=== PATIENT | female | born 1950 | race Caucasian/White ===

== ENCOUNTER → 2020-06-19 | Outpatient (CLI) | payer MEDICARE, OTHER ==
[~2020-06-19] MED LIST: AMITRIPTYLINE H25 MG PO; ATIVAN0.5 MG PO; B-122500 MCG SL; CALCIUM CARBON600 M1 PO; COLACE100 MG PO; CYCLOBENZAPRINE10 MG PO; ECOTRIN81 MG PO; ELIQUIS2.5 MG PO; FISH OIL 1,2001 EAC2 PO; FLEXERIL 10 MG10 MG PO; FOLIC ACID0.8 MG PO; GABAPENTIN600 MG PO; HUMIRA40 MG/0.8 SQ; METHOTREXATE2.5 MG PO; OXYCODONE HCL5 MG PO; PLAQUENIL 200200 MG PO; PREDNISONE10 MG PO; ROXICODONE TAB 55 MG PO; SYNTHROID25 MCG PO; TRAZODONE HCL100 MG PO; VITAMIN C 500500 MG PO; VITAMIN D3125 MCG PO; ZOCOR40 MG PO
== END ==
LOC: EMI 14:30
DX: M51.16 Intervertebral disc disorders with radiculopathy, lumbar region (principal); M43.16 Spondylolisthesis, lumbar region; M51.27 Other intervertebral disc displacement, lumbosacral region; M48.07 Spinal stenosis, lumbosacral region; M47.26 Other spondylosis with radiculopathy, lumbar region
CPT/HCPCS: 72148

== ENCOUNTER → 2020-07-10 | Outpatient (CLI) | payer MEDICARE, OTHER | LOC: KOH-I 13:24 | DX: Z01.818 Encounter for other preprocedural examination (principal); M51.36 Other intervertebral disc degeneration, lumbar region; M48.061 Spinal stenosis, lumbar region without neurogenic claudication; M51.37 Other intervertebral disc degeneration, lumbosacral region; M48.07 Spinal stenosis, lumbosacral region | CPT/HCPCS: 72131 ==

== ENCOUNTER → 2020-07-11 | Outpatient (CLI) | payer MEDICARE, OTHER | LOC: EXRD 11:30 | DX: M81.0 Age-related osteoporosis without current pathological fracture (principal); M85.831 Other specified disorders of bone density and structure, right forearm | CPT/HCPCS: 77080 ==

== ENCOUNTER → 2020-07-17 | Outpatient (CLI) | payer MEDICARE, OTHER | LOC: MRI 07-13 10:00 → EMI 09:38 → MRI 09:45 | DX: M54.2 Cervicalgia (principal); M47.022 Vertebral artery compression syndromes, cervical region; M50.31 Other cervical disc degeneration, high cervical region; M48.02 Spinal stenosis, cervical region | CPT/HCPCS: 72141 ==

== ENCOUNTER → 2020-08-26 | Outpatient (CLI) | payer MEDICARE, OTHER | LOC: KOH-I 08:00 | DX: Z01.818 Encounter for other preprocedural examination (principal); M41.9 Scoliosis, unspecified; M47.814 Spondylosis without myelopathy or radiculopathy, thoracic region; M54.16 Radiculopathy, lumbar region; Z20.822 Contact with and (suspected) exposure to COVID-19 | CPT/HCPCS: 36415; 71046; 72128; 72146; 80048; 85027; 87077; 87081; 87086; 87186; 93005; U0003 ==

== ENCOUNTER 2020-09-02 05:59 | Inpatient (IN) | payer MEDICARE, OTHER ==
[~2020-09-02] VITALS: Ht 157.5 cm; Wt 75.3 kg
[~2020-09-02 05:59] MED LIST changes: -AMITRIPTYLINE H25 MG PO; -B-122500 MCG SL; -CALCIUM CARBON600 M1 PO; -COLACE100 MG PO; -CYCLOBENZAPRINE10 MG PO; -ECOTRIN81 MG PO; -FISH OIL 1,2001 EAC2 PO; -FOLIC ACID0.8 MG PO; -HUMIRA40 MG/0.8 SQ; -OXYCODONE HCL5 MG PO; -ROXICODONE TAB 55 MG PO; -SYNTHROID25 MCG PO; -VITAMIN C 500500 MG PO; -VITAMIN D3125 MCG PO
[2020-09-02] MEDS ORDERED: AMITRIPTYLINE H25 MG PO (07:11)
[2020-09-02] MEDS ORDERED: PREDNISONE10 MG PO (07:12)
[2020-09-02] MEDS ORDERED: OXYCODONE HCL5 MG PO (07:14)
[2020-09-02 14:11] LABS: HEMOGLOBIN 10.2 gm/dl (12.3-15.3); RED BLOOD COUNT 3.97 M/UL (4.00-5.10); WHITE BLOOD COUNT 8.3 K/UL (4.5-11.0)
[2020-09-02 19:29] LABS: HEMOGLOBIN 11.1 gm/dl (12.3-15.3); RED BLOOD COUNT 4.1 M/UL (4.00-5.10); WHITE BLOOD COUNT 11.7 K/UL (4.5-11.0)
[2020-09-02 19:46] LABS: BUN/CREATININE RATIO 18 (0-10)
--- NOTE | 2020-09-03 02:58 | NUR ---
2029 DR CARLTON UPDATED ON PT. 2031 DR SLAUGHTER AWARE OF CONSULT, "LET DAY TEAM KNOW IN THE MORNING." 2199 DR SLAUGHTER NOTIFIED AND AWARE OF PT CURRENT BP. ORDERS FOR NORVASC NOW AND DAILY PLACED. 0245 PT CO OF PAIN FROM R RADIAL A LINE, WAVEFORM DAMPENED, AND SITE LEAKING. A LINE REMOVED, CATHETER INTACT, PRESSURE HELD FOR 5 MINS, PRESSURE DRESSING APPLIED. PT STATES "IT FEELS MUCH BETTER ALREADY." NO SWELLING OR HEMATOMA NOTED.
[2020-09-03 04:39] LABS: HEMOGLOBIN 9.5 gm/dl (12.3-15.3); WHITE BLOOD COUNT 9.7 K/UL (4.5-11.0)
[2020-09-03 04:40] LABS: RED BLOOD COUNT 3.55 M/UL (4.00-5.10)
[2020-09-03 05:07] LABS: BUN/CREATININE RATIO 15 (0-10)
[2020-09-03] MEDS ORDERED: SYNTHROID25 MCG PO (07:06)
[2020-09-03] MEDS ORDERED: FISH OIL 1,2001 EAC2 PO (07:12)
[2020-09-03] MEDS ORDERED: B-122500 MCG SL (07:13)
[2020-09-03] MEDS ORDERED: VITAMIN C 500500 MG PO (07:13)
[2020-09-03] MEDS ORDERED: CALCIUM CARBON600 M1 PO (07:13)
[2020-09-03] MEDS ORDERED: HUMIRA40 MG/0.8 SQ (07:14)
[2020-09-03] MEDS ORDERED: VITAMIN D3125 MCG PO (07:15)
[2020-09-03] MEDS ORDERED: ECOTRIN81 MG PO (07:18)
[2020-09-03] MEDS ORDERED: FOLIC ACID0.8 MG PO (07:26)
[2020-09-03] MEDS ORDERED: TRAZODONE HCL100 MG PO (12:46)
[2020-09-04 05:11] LABS: HEMOGLOBIN 8.7 gm/dl (12.3-15.3); RED BLOOD COUNT 3.34 M/UL (4.00-5.10); WHITE BLOOD COUNT 9.1 K/UL (4.5-11.0)
[2020-09-04 05:28] LABS: BUN/CREATININE RATIO 15 (0-10)
[2020-09-05 03:37] LABS: HEMOGLOBIN 8.7 gm/dl (12.3-15.3); RED BLOOD COUNT 3.21 M/UL (4.00-5.10)
[2020-09-05 03:54] LABS: BUN/CREATININE RATIO 16 (0-10)
--- NOTE | 2020-09-05 15:00 | NUR ---
CALLED [facility] AND INSURED SHE WAS ABLE TO SEE AND CARRY OUT ORDERS THAT WERE ACKNOWLEDGED BY ME.
[2020-09-06 03:52] LABS: RED BLOOD COUNT 3.01 M/UL (4.00-5.10); WHITE BLOOD COUNT 8.3 K/UL (4.5-11.0)
[2020-09-06 04:10] LABS: BUN/CREATININE RATIO 16 (0-10)
[2020-09-07 03:18] LABS: HEMOGLOBIN 8.1 gm/dl (12.3-15.3); RED BLOOD COUNT 2.98 M/UL (4.00-5.10); WHITE BLOOD COUNT 6.3 K/UL (4.5-11.0)
[2020-09-07 03:47] LABS: BUN/CREATININE RATIO 13 (0-10)
[2020-09-09 12:15] LABS: HEMOGLOBIN 8.9 gm/dl (12.3-15.3); RED BLOOD COUNT 3.26 M/UL (4.00-5.10)
[2020-09-09 12:38] LABS: WHITE BLOOD COUNT 7.9 K/UL (4.5-11.0)
[2020-09-09 12:46] LABS: BUN/CREATININE RATIO 16 (0-10)
--- NOTE | 2020-09-10 18:08 | NUR ---
SOAP SUDS ENEMA ADMINISTERED PER MD ORDER. NO S/SX OF DISTRESS OR DISCOMFORT. PATIENT REQUESTED TO USE BATHROOM TOILET. RN INSTRUCTED PATIENT TO HOLD CONTENTS LONG POSSIBLE THEN PULL CALL RAMIREZ WHEN FINISHED. PATIENT VERBALIZED UNDERSTANDING.
[2020-09-11 12:16] LABS: HEMOGLOBIN 9.1 gm/dl (12.3-15.3); RED BLOOD COUNT 3.42 M/UL (4.00-5.10); WHITE BLOOD COUNT 8.6 K/UL (4.5-11.0)
[2020-09-11 12:31] LABS: BUN/CREATININE RATIO 16 (0-10)
--- NOTE | 2020-09-11 21:28 | NUR ---
PATIENT REFUSED SOAP SUDS ENEMA SEVERAL TIMES WHEN OFFERED BY STAFF. DYE PENETRANT TESTING TECHNICIAN NURSE MADE AWARE.
[2020-09-13] MEDS ORDERED: COLACE100 MG PO (09:52)
[2020-09-13 10:05] LABS: HEMOGLOBIN 9.6 gm/dl (12.3-15.3); RED BLOOD COUNT 3.55 M/UL (4.00-5.10)
[2020-09-13 10:12] LABS: WHITE BLOOD COUNT 10.8 K/UL (4.5-11.0)
[2020-09-13 10:30] LABS: BUN/CREATININE RATIO 25 (0-10)
[2020-09-13] MEDS ORDERED: ROXICODONE TAB 55 MG PO (10:47)
[2020-09-13] MEDS ORDERED: CYCLOBENZAPRINE10 MG PO (10:47)
--- NOTE | 2020-09-13 14:20 | NUR ---
CALLED [facility] AND GAVE REPORT TO JERIAC. JERICA STATED THAT THEY WILL CALL PATIENT IN THE MORNING TO SCHEDULE AN APPOINTMENT FOR EVALUATION.
== END 2020-09-13 15:17 | disposition home or self-care (01) | DRG 457 ==
LOC: OR 05:59 → CCU 16:00 → OR 16:00 → CCU 18:52 → M/S 09-05 14:12 → OR 09-05 14:13 → M/S 09-13 15:17
PROVIDERS: Nurse Practitioner Family; ADMIT Orthopaedic Surgery
PROC: 0SG1071 Fusion of 2 or more Lumbar Vertebral Joints with Autologous Tissue Substitute, Posterior Approach, Posterior Column, Open Approach (ICD-10-PCS; 2020-09-02)
PROC: 0SG3071 Fusion of Lumbosacral Joint with Autologous Tissue Substitute, Posterior Approach, Posterior Column, Open Approach (ICD-10-PCS; 2020-09-02)
PROC: 01NB0ZZ Release Lumbar Nerve, Open Approach (ICD-10-PCS; 2020-09-02)
PROC: 01NR0ZZ Release Sacral Nerve, Open Approach (ICD-10-PCS; 2020-09-02)
PROC: 0RG6071 Fusion of Thoracic Vertebral Joint with Autologous Tissue Substitute, Posterior Approach, Posterior Column, Open Approach (ICD-10-PCS; principal; 2020-09-02 07:30)
PROC: 0RGA071 Fusion of Thoracolumbar Vertebral Joint with Autologous Tissue Substitute, Posterior Approach, Posterior Column, Open Approach (ICD-10-PCS; 2020-09-02 07:30)
DX: M41.86 Other forms of scoliosis, lumbar region (principal); D62 Acute posthemorrhagic anemia; K56.7 Ileus, unspecified; E22.2 Syndrome of inappropriate secretion of antidiuretic hormone; M43.16 Spondylolisthesis, lumbar region; Z20.822 Contact with and (suspected) exposure to COVID-19; M54.16 Radiculopathy, lumbar region; E78.5 Hyperlipidemia, unspecified; M06.9 Rheumatoid arthritis, unspecified; E03.9 Hypothyroidism, unspecified; M48.061 Spinal stenosis, lumbar region without neurogenic claudication; F41.9 Anxiety disorder, unspecified; Z96.642 Presence of left artificial hip joint; K59.00 Constipation, unspecified; R73.9 Hyperglycemia, unspecified; Z88.6 Allergy status to analgesic agent; Z85.3 Personal history of malignant neoplasm of breast
CPT/HCPCS: 36415; 36430; 72070; 72100; 72110; 72170; 74018; 76000; 80048; 80053; 82436; 82803; 82962; 83036; 83605; 83735; 84133; 84300; 84520; 85027; 85610; 85730; 86850; 86900; 86901; 86920; 86927; 93971; 97110-GP-CQ; 97116; 97116-GP-CQ; 97162; 97166; 97530; 97530-GP-CQ; 97535; A6212; C1713; C1762; C1781; J0690; J1040; J1100; J1170; J1644; J2001; J2405; J2704; J3010; J3301; J3370; J7030; J7040; J7050; J7120; P9016; P9017; Q9963; U0003